=== PATIENT | male | born 1990 | race Hispanic/Latino ===

== ENCOUNTER 2023-07-23 11:04 | Emergency (ER) | payer SELFPAY ==
[2023-07-23] MEDS ORDERED: Acetaminophen 500 MG TAB ONE (12:47)
[2023-07-23] MEDS ORDERED: predniSONE 20 MG TAB ONE (12:47)
[2023-07-23] MEDS ORDERED: valACYclovir 500 MG TAB PO SCH (13:00)
== END 2023-07-23 14:00 | disposition home or self-care (01) ==
LOC: CSHERS 11:04
DX: B02.21 Postherpetic geniculate ganglionitis (principal)
CPT/HCPCS: 99283; J7512